=== PATIENT | male | born 2000 | race Caucasian/White ===

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

== ENCOUNTER 2025-01-31 10:36 | Outpatient (AMB) | payer OTHER, SELFPAY ==
--- NOTE | 2025-01-31 10:47 | A.OFFPC_ITS ---
Vital Signs 01/31/25 10:48 Height 5 ft 10.08 in Weight 293 lb 8 oz BMI 42.0 BP 100/56 L Blood Pressure Location Lt brachial Position Sitting Pulse 54 Pulse Source Pulse Oximeter Temp 97.3 F Temp Source Temporal Artery Scan Pulse Oximetry (%) 97 Oxygen Delivery Method Room Air Intake Visit Reasons: establish care, will need a PE soon Landfill Grader Required: No Accompanied by: Self / Same As Patient Allergies No Known Allergies [No Known Allergies*] Allergy (Verified 01/31/25 11:12) Medication List - Last Reconciled 01/31/25 by Piyush Ontiveros PA-C No Known Home Meds Tobacco use date assessed: 01/31/25 Dental Screening Dental Screen Date: 01/31/25 Did you have a dental visit in the last 12 months?: Yes Did you have a dental problem in the last 6 months where you did not have access to dental care?: No Was dental information given to patient?: Patient has dentist HPI establish care, will need a PE soon HPI Details The patient is a 24-year-old male presenting with concerns related to weight management and associated depressive mood. The patient's weight has increased from 218 pounds in 2020 to 293 pounds currently, with the gain attributed to changes during the COVID-19 pandemic. This weight increase has led to depressive symptoms impacting his self-esteem, as reported by the patient. He is actively trying to mitigate this weight increase through dietary measures and exercise. The patient's family history reveals coronary artery disease in his mother, managed with a pacemaker, and a cerebrovascular accident in his father approximately two years ago. He reports an overdue tetanus vaccination, last administered in 2012. His social history notes occasional alcohol consumption without smoking or recreational drug use. The patient is cognizant of the balance between physical and mental health, expressing interest in lifestyle interventions and mental health support as potential strategies to address his concerns. [facility] Surgical History History of laparoscopic appendectomy Family History (Updated 01/31/25 @ 11:43 by MARGARET Trujillo) Mother CAD (coronary artery disease) Pacemaker Recurrent deep vein thrombosis (DVT) Hypertension Hypercholesterolemia SLE (systemic lupus erythematosus) Ventricular arrhythmia ICD (implantable cardioverter-defibrillator) in place History of pulmonary embolus (PE) COPD (chronic obstructive pulmonary disease) Hypothyroidism GERD (gastroesophageal reflux disease) Osteoporosis Lumbar disc herniation Vitamin D deficiency Nicotine dependence, cigarettes, uncomplicated Carpal tunnel syndrome ELENA (obstructive sleep apnea) Father CVA (cerebral vascular accident) COPD (chronic obstructive pulmonary disease) Seizure disorder History of ST elevation myocardial infarction (STEMI) PFO (patent foramen ovale) Peripheral arterial disease Hypercholesterolemia ELENA (obstructive sleep apnea) GERD (gastroesophageal reflux disease) Nicotine dependence, cigarettes, uncomplicated Chronic back pain Tubular adenoma Hypersomnia Claudication Metabolic encephalopathy Scrotal sac enlargement Vision changes Shoulder pain, left Restrictive lung disease Social History Household Members: Family Housing: House Alcohol intake: current Alcohol intake frequency: holidays/special occasions only Patient Tobacco Use Status: Never used Tobacco Tobacco use type: Cigarette e-Cigarette/Vaping Use: Never Used service: No Current occupational status: employed (3 jobs) 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 1. Little interest or pleasure in doing things: not at all 2. Feeling down, depressed, or hopeless: several days 3. Trouble falling or staying asleep, or sleeping too much: several days 4. Feeling tired or having little energy: nearly every day 5. Poor appetite or overeating: not at all 6. Feeling bad about yourself - or that you are a failure or have let yourself or your family down: several days 7. Trouble concentrating on things, such as reading the newspaper or watching television: not at all 8. Moving or speaking so slowly that other people could have noticed. Or the opposite - being so fidgety or restless that you have been moving around a lot more than usual: not at all 9. Thoughts that you would be better off or of hurting yourself in some way: not at all Total score: 6 Depression Screening Interpretation: Positive Depression Screening Follow-up: Existing condition and Declines treatment Depression Screening Done: Yes 65334 - PHQ-9 Billing: Yes Source: Developed by Drs. José Preston, Karin Whiting, Torin Polo and colleagues, with an educational emmanuel from [employer]. Thrive Questionnaire Date Thrive assessed: 01/31/25 I am a: Patient What is your living situation today?: I have a steady place to live Within the past 12 months, did the food you bought not last and you didn't have the money to get more?: Never true Within the past 12 months, did you worry whether your food would run out before you got money to buy more?: Never true Do you have trouble paying for medicines?: No Do you have trouble getting transportation to medical appointments?: No Do you have trouble paying your heating and electricity bill?: No Do you have trouble taking care of your child, family member or friend?: No Do you have trouble with day-to-day activities such as bathing, preparing meals, shopping, managing finances, etc.?: No Are you currently unemployed and looking for a job?: No Are you interested in more education?: No Please select the resources that you would like help with: None Currently or been in a relationship where the following occur: No concerns reported THRIVE Score: 0 AUDIT C Alcohol Use Questionnaire (AUDIT-C) 1. How often do you have a drink containing alcohol?: Monthly or less 2. How many drinks containing alcohol do you have on a typical day when you are drinking?: 1 or 2 3. How often do you have six or more drinks on one occasion?: Never Total Score: 1 TARA-7 AMB Questionnaire TARA-7 Date TARA - 7 assessed: 01/31/25 Feeling nervous, anxious, or on edge: 0 = Not at all Not being able to stop or control worryin = Not at all Worrying too much about different things: 0 = Not at all Trouble relaxin = Not at all Being so restless that it is hard to sit still: 0 = Not at all Becoming easily annoyed or irritable: 0 = Not at all Feeling afraid as if something awful might happen: 0 = Not at all Total TARA-7 score (0-4 normal; 5-9 mild; 10-14 moderate; 15-21 severe): 0 Source: Developed by Drs. José Preston, Karin Whiting, Torin Polo and colleagues, with an educational emmanuel from [employer]. TARA-7 Assessment Billing TARA-7 Assessment Tool: TARA-7 Assessment 34400 Review of Systems Const Denies headache(s) Eyes Denies loss of vision ENT Denies vertigo, Denies dizziness, Denies headache(s) and Denies sore throat Card Denies chest pain, Denies leg edema and Denies lightheadedness Resp Denies cough, Denies hemoptysis and Denies wheezing GI Denies abdominal pain, Denies melena, Denies constipation, Denies diarrhea and Denies vomiting Denies dysuria, Denies urinary frequency and Denies urinary urgency Musc Denies arthralgias, Denies joint swelling, Denies numbness and Denies tingling Neuro Denies Abnormal speech present, Denies behavioral changes, Denies vertigo, Denies dizziness, Denies headache(s), Denies loss of vision, Denies memory loss, Denies numbness and Denies tingling Psych Denies anxiety, Denies behavioral changes, Denies depression, Denies memory loss and Denies panic attacks Ortiz/Lymph Denies easy bleeding and Denies easy bruising Aller/Immun Denies wheezing Physical exam (Primary Care) Vital Signs: Last Vital Signs Temp 97.3 F 01/31/25 10:48 Pulse 54 01/31/25 10:48 BP 100/56 L 01/31/25 10:48 Pulse Ox 97 01/31/25 10:48 Oxygen Delivery Method Room Air 01/31/25 10:48 BMI result Body Mass Index 42.0 BMI Assessment/Plan discussion: High BMI High, discussed plan: lifestyle, weight reduction, dietary and physical activity Tobacco/Smoking Status: Tobacco use Status Tobacco use date assessed 01/31/25 01/31/25 10:58 Patient Tobacco Use Status Never used Tobacco 01/31/25 11:13 Tobacco use type Cigarette 01/31/25 11:13 e-Cigarette/Vaping Use Never Used 01/31/25 11:13 PHQ-9: PHQ-9 Score PHQ-9: Total score 6 01/31/25 11:36 Depression Screening Interpretation: Positive Depression Screening Follow-up: Existing condition and Declines treatment Thrive Assessment: Date of Thrive Assessment Date Thrive assessed 01/31/25 01/31/25 10:52 Currently or been in a relationship where the following occur: No concerns reported Const General: healthy appearing, no acute distress, alert and awake Nutritional Appearance: well nourished Orientation/consciousness: oriented to person, oriented to place and oriented to time HENMT Ears: TM's normal bilaterally General nose exam: Normal nasal mucous membranes and turbinates present Eyes Conjunctivae: conjunctivae normal Sclerae: sclerae normal Pupils: Equal, round and reactive pupils present Neck Neck: Yes no lymphadenopathy and Yes no JVD Thyroid: Thyroid normal Carotids: no bruits Resp Effort & Inspection: normal respiratory effort and not tachypneic Auscultation: no crackles, no rales, no rhonchi and no wheezes Cardio Rate: regular rate Rhythm: regular rhythm Heart sounds: no murmurs and normal S1 and S2 GI Palpation (GI): Soft to palpation, nontender, no hepatomegaly and no splenomegaly Auscultation: normal bowel sounds Skin General skin exam: no rashes or lesions noted and dry skin Neuro General: oriented to person, oriented to place and oriented to time Cranial nerves: Yes Equal, round and reactive pupils present Speech: No Abnormal speech present Gait exam (Neuro): Normal gait present Motor exam (neuro): no tremor noted Extrem Right upper extremity: full ROM Left upper extremity: full ROM Right lower extremity: full ROM; no edema Left lower extremity: full ROM; no edema Psych Mental Status: mental status grossly normal Speech and movement: Normal speech and movement present Affect: normal affect Attitude: cooperative Thought process: Normal thought process present Immunizations Boostrix Tdap 2.5 Lf unit-8 mcg-5 Lf/0.5 mL intramuscular syringe Performing Provider: Piyush Ontiveros PA-C [facility] Administered by: MARGARET Trujillo on 01/31/25 11:44 Dose Route Admin Location Dispensed Lot Number Expiration Date [facility] Digital Designer 0.5 mL IM Left Deltoid 0.5 mL [id number] 04/29/27 [id number] Nexavis VIS Given Date VIS Provided VIS Publication Date 01/31/25 Single Vaccine 21 Eligibility Eligibility Date Funding Source Not [facility] Eligible 01/31/25 Private Coding Level of Care Code New Pt Level 4 (02671) Diagnoses Class 3 obesity E66.813 Screening for diabetes mellitus (DM) Z13.1 Current mild episode of major depressive disorder without prior episode F32.0 Active/Remission status: currently active Major depression episode severity: mild Major depression recurrence: single episode Additional Codes TARA-7 Assessment Billing - TARA-7 Assessment Tool: TARA-7 Assessment 59721 ([id number]) PHQ-9 - 47550 - PHQ-9 Billing: Yes ([id number]) Assessment & Plan Assessment & Plan (1) Class 3 obesity: Code(s): E66.813 - Obesity, class 3 Category: Medical Plan: A strategy focusing on dietary changes toward a calorie deficit and planned increase in physical activity was discussed with the patient. Exercise frequency should be enhanced to four to five times weekly, with an emphasis on cardiovascular activity. Screening tests for potential underlying causes, such as thyroid dysfunction, are planned. (2) Screening for diabetes mellitus (DM): Code(s): Z13.1 - Encounter for screening for diabetes mellitus Category: Medical Plan: As per HPI (3) MDD (major depressive disorder): Code(s): F32.9 - Major depressive disorder, single episode, unspecified Category: Medical Qualifiers: Active/Remission status: currently active Major depression episode severity: mild Major depression recurrence: single episode Qualified Code(s): F32.0 - Major depressive disorder, single episode, mild Plan: The patient acknowledged feeling depressive symptoms associated with weight gain. Discussion of mental health therapy options and the potential for pharmacotherapy if indicated in future assessments was suggested. Orders: Orders Comprehensive [place]. Panel Fast Today Z13.1 - Encounter for screening for diabetes mellitus TSH reflex Free T4 Today E66.813 - Obesity, class 3 Complete Blood Count no Diff Today Z13.1 - Encounter for screening for diabetes mellitus TDaP Immunization Today E66.813 - Obesity, class 3, Z23 - Encounter for immunization
[2025-01-31 10:48] VITALS: BP 100/56; PULSE 54; TEMP 36.3; O2SAT 97; BMI 42.0
== END 2025-01-31 11:39 | disposition home or self-care (01) ==
PROVIDERS: PCP Physician Assistant; Visit Provider Physician Assistant
DX: F32.0 Major depressive disorder, single episode, mild (principal); E66.813 Obesity, class 3; Z68.41 Body mass index [BMI] 40.0-44.9, adult; Z13.1 Encounter for screening for diabetes mellitus; Z23 Encounter for immunization

== ENCOUNTER → 2025-01-31 10:36 | Outpatient (BNVA) | payer OTHER, SELFPAY | PROVIDERS: Visit Provider Physician Assistant | DX: Z23 Encounter for immunization (principal); E66.813 Obesity, class 3; Z68.41 Body mass index [BMI] 40.0-44.9, adult; F32.0 Major depressive disorder, single episode, mild; Z71.3 Dietary counseling and surveillance | CPT/HCPCS: 90471; 90715; 96127; 99202 ==

== ENCOUNTER 2025-08-10 14:39 | Outpatient (REF) | payer OTHER, SELFPAY ==
[2025-08-10 16:04] LABS: Hematocrit 46.9 % (42.0-52.0); Hemoglobin 15.5 g/dl (14.0-18.0); Mean Corpuscular HGB Conc 33.0 g/dl (31.0-36.0); Mean Corpuscular Hemoglobin 29.6 pg (27.0-33.0); Mean Corpuscular Volume 89.5 fL (80.0-98.0); NRBC Abs Auto 0.000 X10*3/uL (0.0-0.012); NRBC Pct Auto 0.0 /100WBC (0.0-0.2); Platelet Count 280 X10*3/uL (160-400); Red Blood Count 5.24 X10*6/uL (4.60-5.80); White Blood Count 9.8 X10*3/uL (4.8-10.8)
[2025-08-10 16:09] LABS: Total Hemoglobin (HGBA1C) 3958.5323 umol/L
[2025-08-10 16:32] LABS: Alanine Aminotransferase 139 U/L (0-40); Albumin Level 4.9 g/dL (3.5-5.0); Alkaline Phosphatase 67 U/L (39-117); Anion Gap 11 (12-20); Aspartate Amino Transferase 50 U/L (5-37); Blood Urea Nitrogen 10 mg/dL (9-16); Calcium 9.7 mg/dL (8.4-10.2); Carbon Dioxide 28 mmol/L (22-29); Chloride 106 mmol/L (96-108); Estimated Glomerular Filt Rate > 60; Potassium 4.1 mmol/L (3.3-5.1); Sodium 141 mmol/L (135-145); Total Protein 7.7 g/dL (6.5-8.0)
[2025-08-10 17:47] LABS: Free T4 (Free Thyroxine) 0.80 ng/dL (0.71-1.85)
== END 2025-08-10 14:40 | disposition home or self-care (01) ==
LOC: HO.LAB 14:39
PROVIDERS: PCP Physician Assistant; Visit Provider Physician Assistant
DX: Z13.1 Encounter for screening for diabetes mellitus (principal); Z00.00 Encounter for general adult medical examination without abnormal findings; E66.813 Obesity, class 3; E88.819 Insulin resistance, unspecified; F32.0 Major depressive disorder, single episode, mild; Z68.41 Body mass index [BMI] 40.0-44.9, adult
CPT/HCPCS: 36415; 80053; 83036; 84439; 84443; 85027; 96127; 99395

== ENCOUNTER 2025-08-10 14:39 | Outpatient (AMB) | payer OTHER, SELFPAY ==
[2025-08-10 14:48] VITALS: BP 132/84; PULSE 60; TEMP 36.2; O2SAT 96; BMI 43.0
--- NOTE | 2025-08-10 14:48 | MHC.PC.OV ---
Vital Signs 08/10/25 14:48 Height 5 ft 10.08 in Weight 300 lb 2 oz BMI 43.0 BP 132/84 Blood Pressure Location Lt brachial Position Sitting Pulse 60 Pulse Source Pulse Oximeter Temp 97.1 F Temp Source Temporal Artery Scan Pulse Oximetry (%) 96 Oxygen Delivery Method Room Air Intake Visit Reasons: Annual Exam Allergies No Known Allergies (No Known Allergies*) Allergy (Verified 08/10/25 14:52) Medication List - Last Reconciled 08/10/25 by Piyush Ontiveros PA-C No Known Home Meds Tobacco use date assessed: 08/10/25 Dental Screening Dental Screen Date: 08/10/25 Did you have a dental visit in the last 12 months?: No Did you have a dental problem in the last 6 months where you did not have access to dental care?: No Was dental information given to patient?: No HPI Annual Exam HPI Details The patient is a 24-year-old male presenting for an annual physical examination and concerns regarding weight management and potential diabetes. The patient reports a weight of 300 pounds, which is an increase from 293 pounds six months ago. He acknowledges the difficulty in managing calorie intake and the challenge of feeling satiated with smaller meals. The patient has been advised to reduce carbohydrate intake and increase the consumption of colorful vegetables to aid in weight loss. The patient has noticed the development of skin tags and darkening of the neck, which may indicate insulin resistance. He expresses concern about the possibility of diabetes, although he denies experiencing significant symptoms such as increased thirst or frequent urination, attributing any urinary issues to pre-existing bladder problems. The patient has a history of depression related to legal troubles, which has since resolved. He denies current symptoms of depression. Vaccines: Patient up-to-date with COVID and tetanus vaccines, he is considering flu shot [facility] Surgical History History of laparoscopic appendectomy Family History Mother CAD (coronary artery disease) Pacemaker Recurrent deep vein thrombosis (DVT) Hypertension Hypercholesterolemia SLE (systemic lupus erythematosus) Ventricular arrhythmia ICD (implantable cardioverter-defibrillator) in place History of pulmonary embolus (PE) COPD (chronic obstructive pulmonary disease) Hypothyroidism GERD (gastroesophageal reflux disease) Osteoporosis Lumbar disc herniation Vitamin D deficiency Nicotine dependence, cigarettes, uncomplicated Carpal tunnel syndrome ELENA (obstructive sleep apnea) Father CVA (cerebral vascular accident) COPD (chronic obstructive pulmonary disease) Seizure disorder History of ST elevation myocardial infarction (STEMI) PFO (patent foramen ovale) Peripheral arterial disease Hypercholesterolemia ELENA (obstructive sleep apnea) GERD (gastroesophageal reflux disease) Nicotine dependence, cigarettes, uncomplicated Chronic back pain Tubular adenoma Hypersomnia Claudication Metabolic encephalopathy Scrotal sac enlargement Vision changes Shoulder pain, left Restrictive lung disease Social History (Updated 08/10/25 @ 14:56 by Piyush Ontiveros PA-C) Household Members: Family Housing: House Alcohol intake: current Alcohol intake frequency: holidays/special occasions only Patient Tobacco Use Status: Never used Tobacco Tobacco use type: Cigarette e-Cigarette/Vaping Use: Never Used service: No Current occupational status: employed (3 jobs) 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 1. Little interest or pleasure in doing things: not at all 2. Feeling down, depressed, or hopeless: several days 3. Trouble falling or staying asleep, or sleeping too much: several days 4. Feeling tired or having little energy: nearly every day 5. Poor appetite or overeating: not at all 6. Feeling bad about yourself - or that you are a failure or have let yourself or your family down: several days 7. Trouble concentrating on things, such as reading the newspaper or watching television: not at all 8. Moving or speaking so slowly that other people could have noticed. Or the opposite - being so fidgety or restless that you have been moving around a lot more than usual: not at all 9. Thoughts that you would be better off or of hurting yourself in some way: not at all Total score: 6 Depression Screening Interpretation: Positive Depression Screening Follow-up: Existing condition and Declines treatment Depression Screening Done: Yes 57000 - PHQ-9 Billing: Yes Source: Developed by Drs. José Preston, Karin Whiting, Torin Polo and colleagues, with an educational emmanuel from [employer]. Thrive Questionnaire Date Thrive assessed: 01/31/25 I am a: Patient What is your living situation today?: I have a steady place to live Within the past 12 months, did the food you bought not last and you didn't have the money to get more?: Never true Within the past 12 months, did you worry whether your food would run out before you got money to buy more?: Never true Do you have trouble paying for medicines?: No Do you have trouble getting transportation to medical appointments?: No Do you have trouble paying your heating and electricity bill?: No Do you have trouble taking care of your child, family member or friend?: No Do you have trouble with day-to-day activities such as bathing, preparing meals, shopping, managing finances, etc.?: No Are you currently unemployed and looking for a job?: No Are you interested in more education?: No THRIVE Score: 0 AUDIT C Alcohol Use Questionnaire (AUDIT-C) 1. How often do you have a drink containing alcohol?: Monthly or less 2. How many drinks containing alcohol do you have on a typical day when you are drinking?: 1 or 2 3. How often do you have six or more drinks on one occasion?: Never Total Score: 1 TARA-7 AMB Questionnaire TARA-7 Date TARA - 7 assessed: 01/31/25 Feeling nervous, anxious, or on edge: 0 = Not at all Not being able to stop or control worryin = Not at all Worrying too much about different things: 0 = Not at all Trouble relaxin = Not at all Being so restless that it is hard to sit still: 0 = Not at all Becoming easily annoyed or irritable: 0 = Not at all Feeling afraid as if something awful might happen: 0 = Not at all Total TARA-7 score (0-4 normal; 5-9 mild; 10-14 moderate; 15-21 severe): 0 Source: Developed by Drs. José Preston, Karin Whiting, Torin Polo and colleagues, with an educational emmanuel from [employer]. TARA-7 Assessment Billing TARA-7 Assessment Tool: TARA-7 Assessment 42267 Review of Systems Const Denies body aches, Denies chills, Denies excessive sweating, Denies fatigue, Denies fever(s) and Denies headache(s) Eyes Denies blurry vision ENT Denies dysphagia, Denies vertigo, Denies dizziness, Denies headache(s), Denies hearing loss and Denies tinnitus Card Denies chest pain, Denies chest pain with activity, Denies syncope, Denies irregular heart rhythm and Denies dyspnea Resp Denies chest congestion, Denies cough, Denies hemoptysis, Denies dyspnea and Denies wheezing GI Denies abdominal pain, Denies melena, Denies hematochezia, Denies coffee ground emesis, Denies dysphagia, Denies diarrhea, Denies nausea and Denies vomiting Denies difficulty urinating, Denies dysuria, Denies urinary frequency, Denies urinary hesitancy and Denies urinary urgency Musc Denies arthralgias, Denies limited range of motion, Denies muscle cramps and Denies muscle weakness Skin/Breast Denies rash and Denies skin ulcer Neuro Denies Abnormal speech present, Denies confusion, Denies vertigo, Denies dizziness, Denies syncope, Denies headache(s), Denies memory loss and Denies seizure-like activity Psych Denies anxiety, Denies confusion, Denies depression, Denies memory loss, Denies panic attacks and Denies paranoia Endo Denies excessive sweating, Denies fatigue, Denies flushing, Denies polydipsia and Denies polyuria Aller/Immun Denies wheezing Physical exam (Primary Care) Vital Signs: Last Vital Signs Temp 97.1 F 08/10/25 14:48 Pulse 60 08/10/25 14:48 BP 132/84 08/10/25 14:48 Pulse Ox 96 08/10/25 14:48 Oxygen Delivery Method Room Air 08/10/25 14:48 BMI result Body Mass Index 43.0 BMI Assessment/Plan discussion: High BMI High, discussed plan: lifestyle, weight reduction, dietary and physical activity Tobacco/Smoking Status: Tobacco use Status Tobacco use date assessed 08/10/25 08/10/25 14:51 Patient Tobacco Use Status Never used Tobacco 08/10/25 14:56 Tobacco use type Cigarette 08/10/25 14:56 e-Cigarette/Vaping Use Never Used 08/10/25 14:56 PHQ-9: PHQ-9 Score PHQ-9: Total score 6 08/10/25 15:01 Depression Screening Interpretation: Positive Depression Screening Follow-up: Existing condition and Declines treatment Thrive Assessment: Date of Thrive Assessment Date Thrive assessed 01/31/25 08/10/25 14:51 Const General: cooperative, comfortable, no acute distress, alert and awake; No confusion Orientation/consciousness: oriented to person, oriented to place, patient oriented x3 and No confusion HENMD Head: Yes normocephalic Ears: external ears normal and TM's normal bilaterally Face and sinus: No sinus tenderness Mouth: Normal oral and palatal mucosa present and tongue normal Teeth and gingiva: dentition normal and gingiva normal Throat: Yes posterior oropharynx normal, Yes tonsils normal and Yes uvula midline Eyes Conjunctivae: conjunctivae normal Sclerae: sclerae normal Pupils: Equal, round and reactive pupils present EOM: EOMs intact bilaterally Direct Ophthalmoscopy: No no photophobia Neck Neck: Yes no lymphadenopathy, No tender and Yes no JVD Thyroid: Thyroid normal Carotids: no bruits Chest Chest palpation & inspection: no tenderness Resp Effort & Inspection: normal respiratory effort, no audible wheezes, not labored and no stridor Auscultation: no crackles, no rales, no rhonchi and no wheezes Cardio Jugular venous distension: no JVD Rate: regular rate, not bradycardic and not tachycardic Rhythm: regular rhythm Bruits: no carotid bruits Peripheral pulses: Peripheral pulses 2+ throughout GI Inspection: Yes normal to inspection, No abdominal wall ecchymosis and No visible herniation Palpation (GI): Soft to palpation, nontender, no guarding, not rigid and No hepatosplenomegaly present Auscultation: normoactive bowel sounds General: Yes no CVA tenderness Back/Spine/Pelvis Back: no CVA tenderness and No back tenderness Cervical Spine: cervical ROM normal Thoracic/Lumbar Spine: thoracic and lumbar spine normal to inspection, straight leg raise negative bilaterally, No thoraco-lumbar ROM limited and No lumbar spinal tenderness Skin Lesions: no lesions Rashes: no rashes Wounds: no wounds Neuro General: oriented to person, oriented to place, patient oriented x3, CN's II-XI intact bilaterally and No confusion Cranial nerves: Yes Equal, round and reactive pupils present and Yes Normal accommodation reflex present Cognition (Neuro): normal cognition Speech: No Abnormal speech present Gait exam (Neuro): Normal gait present Motor exam (neuro): 5/5 motor strength present throughout Extrem Right upper extremity: full ROM; no cyanosis Left upper extremity: full ROM; no cyanosis Right lower extremity: no edema Left lower extremity: no edema Psych Appearance: grossly normal Mental Status: mental status grossly normal Affect: normal affect Attitude: cooperative Thought process: Normal thought process present Coding Level of Care Code Est Pt Prev Care 18-39y(43253) Diagnoses Annual physical exam Z00.00 Class 3 obesity E66.813 Insulin resistance E88.819 Current mild episode of major depressive disorder without prior episode F32.0 Major depression recurrence: single episode Active/Remission status: currently active Major depression episode severity: mild Additional Codes PHQ-9 - 61866 - PHQ-9 Billing: Yes ([id number]) TARA-7 Assessment Billing - TARA-7 Assessment Tool: TARA-7 Assessment 53012 ([id number]) Assessment & Plan Assessment & Plan (1) Annual physical exam: Code(s): Z00.00 - Encounter for general adult medical examination without abnormal findings Category: Medical Plan: As per HPI (2) Class 3 obesity: Code(s): E66.813 - Obesity, class 3 Category: Medical Plan: Unfortunately gained 7 lb since last office visit. A strategy focusing on dietary changes toward a calorie deficit and planned increase in physical activity was discussed with the patient. Exercise frequency should be enhanced to four to five times weekly, with an emphasis on cardiovascular activity. Screening tests for potential underlying causes, such as thyroid dysfunction, are planned. (3) Insulin resistance: Code(s): E88.819 - Insulin resistance, unspecified Category: Medical Plan: Patient his sleep seeing signs of some insulin resistance with erythema migraines over his neck and now is 300 lb. Will check an A1c to evaluate for diabetes (4) MDD (major depressive disorder): Code(s): F32.9 - Major depressive disorder, single episode, unspecified Category: Medical Qualifiers: Major depression recurrence: single episode Active/Remission status: currently active Major depression episode severity: mild Qualified Code(s): F32.0 - Major depressive disorder, single episode, mild Plan: Patient's PHQ-9 positive for mild depression which has been existing condition for him. Has been better since his legal problems has been resolving. Otherwise not interested in speaking with a mental health therapist or using any mental health medication Orders: Orders Hemoglobin A1c 08/10/25 E88.819 - Insulin resistance, unspecified
--- OUTSIDE RECORDS SUMMARY | 2025-08-10 18:59 | XMS_ITS | Clinical Summary ---
Author Organization [facility] Address [address] [place] [address] [place] [id number] Phone Care Team Providers Care Government Property Inspector Name Role Phone Mirella Whiting Primary Care Provider [phone] Allergies No known active allergies Medications No known medications Active Problems Problem Noted Date Diagnosed Date Abdominal pain 06/03/2019 Hepatic steatosis 10/25/2018 Obesity peds (BMI >=95 percentile) 09/08/2018 Social History Tobacco Use Types Packs/Day Years Used Date Smoking Tobacco: Never Assessed Education Answer Date Recorded Are you interested in more education? Not on karen e 03/13/2023 Are you concerned about learning? Not on file 03/13/2023 No 03/13/2023 No 03/13/2023 Digital Access Answer Date Recorded No 04/11/2023 No 04/11/2023 No 04/11/2023 Reliable internet access at home? Not on file 04/11/2023 Device with a working camera? Not on file Intimate Partner Violence Answer Date R ecorded Are you denied basic needs s uch as food, clothing, or medical care? No 11/11/2024 In the past 12 months have y ou been in a relationship with a person who hurts, threatens, or tries to control you? No 11/11/2024 Are you denied basic needs s uch as food, clothing, or medical care? No 11/11/2024 In the past 12 months have y ou been in a relationship with a person who hurts, threatens, or tries to control you? No 11/11/2024 Sex and Gender Information Value Date Recorded Sex Assigned at Male 11/11/2024 5:42 PM EST Legal Sex Male 11:21 AM EDT Gender Identity Male 11/11/2024 5:42 PM EST Sexual Orientation Straight 11/11/2024 5: 42 PM EST Last Filed Vital Signs Vital Sign Reading Time Taken Comments Blood Pressure 123/85 11/11/2024 11:01 PM EST Pulse 54 11/11/2024 11:01 PM EST Temperature 36.4 C (97.5 F) 11/11/2024 11:01 PM EST Respiratory Rate 18 11/11/2024 11:0 1 PM EST Oxygen Saturation 98% 11/11/2024 11: 01 PM EST Inhaled Oxygen Concentration - - Weight 138.2 kg (304 lb 11.2 oz) 11/11/2024 5:45 PM EST Height 175.3 cm (5' 9 ) 11/11/2024 5:45 PM EST Body Mass Index 45 11/11/2024 5:45 PM EST Plan of Treatment Health Maintenance Due Date Last Done Comments Adult Td,Tdap Booster 2002 DEPRESSION SCREENING 2014 SMOKING Hx and SMOKELESS TOBACCO SCREENING 2015 MENINGOCOCCAL VACCINES (B) ( 1 of 2 - Standard) 2018 HEPATITIS C SCREENING 2020 HIV ONE-TIME SCREENING (18-6 5 YEARS) 2020 INFLUENZA VACCINE (#1) 2025 COVID-19 VACCINE (3 - 2024-2 6 season) 2025 04/09/2021, 03/19/2021 HPV VACCINES Completed 05/23/2016, 03/13/2015 HEPATITIS A VACCINES Aged Out No long er eligible based on patient's age to complete this topic HIB VACCINES Aged Out No longer eligi ble based on patient's age to complete this topic MENINGOCOCCAL VACCINES (ACWY) Aged Out No longer eligible based on patient's age to complete this topic PNEUMOCOCCAL VACCINES (0-49 years) Aged Out No longer eligible b ased on patient's age to complete this topic Medical Devices Not on file Insurance [employer] PUBLIC [employer]ANS [employer] DIRECT [employer] DIRECT [employer] DIRECT [employer] DIRECT [employer] [place] [address] [address] [place] [address] [place] [address] [employer] [place] [address] [place] [address] [employer] DIRECT [employer] [address] [place] [address]ARE [address] [place], [place] [address]CARE DIRECT [employer] Care Teams Government Property Inspector Relationship Specialty Start Date End Date Mirella Whiting PA [address] [place] [address] [address] [place] [address] PCP - General Unknown Provider Specialty 09/08/18 Additional Source Comments The information contained in this document represents components of the legal health record. It is not the complete legal health record.[facility]
== END 2025-08-10 15:05 | disposition home or self-care (01) ==
LOC: HO.HMCH 14:40
PROVIDERS: PCP Physician Assistant; Visit Provider Physician Assistant
DX: Z00.00 Encounter for general adult medical examination without abnormal findings (principal); E66.813 Obesity, class 3; E88.819 Insulin resistance, unspecified; Z68.41 Body mass index [BMI] 40.0-44.9, adult; F32.0 Major depressive disorder, single episode, mild

== ENCOUNTER 2025-10-27 09:37 | Outpatient (REF) | payer OTHER, SELFPAY | END 2025-10-27 09:38 | disposition home or self-care (01) | LOC: HO.US 09:37 | PROVIDERS: PCP Physician Assistant; Visit Provider Physician Assistant | DX: R74.8 Abnormal levels of other serum enzymes (principal) | CPT/HCPCS: 76700 ==

== ENCOUNTER → 2025-10-27 09:44 | Outpatient (BNV) | payer OTHER, SELFPAY | PROVIDERS: PCP Physician Assistant; Visit Provider Radiology Diagnostic Radiology | DX: R16.0 Hepatomegaly, not elsewhere classified (principal); K76.0 Fatty (change of) liver, not elsewhere classified | CPT/HCPCS: 76700 ==